=== PATIENT | male | born 1960 | race Caucasian/White ===

== ENCOUNTER 2018-11-15 15:05 | Emergency (ER) | payer BC ==
[2018-11-15] MEDS ORDERED: Ketorolac Tromethamine 30 MG/ML VIAL ONE (16:18)
== END 2018-11-15 16:50 | disposition home or self-care (01) ==
LOC: ERS 15:05
DX: S16.1XXA Strain of muscle, fascia and tendon at neck level, initial encounter (principal); S29.012A Strain of muscle and tendon of back wall of thorax, initial encounter; I10 Essential (primary) hypertension; V43.52XA Car driver injured in collision with other type car in traffic accident, initial encounter
CPT/HCPCS: 96372; J1885